=== PATIENT | female | born 1960 | race Caucasian/White ===

== ENCOUNTER 2018-05-30 01:41 | Emergency (ER) | payer SELFPAY ==
[~2018-05-30] VITALS: Ht 177.8 cm; Wt 54.4 kg
[~2018-05-30 01:41] MED LIST: ALBU1.25 NEB; BUDE10.2 IH; HYDR1TAB10 PO; SULF1TAB24 PO; TIOT18CA IH
[2018-05-30 01:45] VITALS: BP 128/88
[2018-05-30] MEDS ORDERED: methylPREDNISolone SOD SUCC PF 125 MG/2 ML VIAL. IM ONE (02:45)
[2018-05-30] MEDS ORDERED: KETOROLAC 60 MG/2 ML VIAL. IM ONE (02:45)
[2018-05-30] MEDS ORDERED: HYDR5SUS PO (02:48)
[2018-05-30] MEDS ORDERED: METH4TAB2 PO (02:48)
[2018-05-30] MEDS ORDERED: AZIT250T PO (02:48)
--- NOTE | 2018-05-30 02:48 | PHYS DOC ---
Past History Past Medical History: No Pertinent History, COPD, Other Past Surgical History: Other Alcohol Use: Occasionally Drug Use: Marijuana Adult General Chief Complaint Chief Complaint: COUGH [facility] HPI She is a 57-year-old female who presents with complaint of right sided upper flank/lower rib pain that started a couple of days ago. Patient states that the pain initially felt like it was pleurisy and then last night while she was at work she was doing a lot of lifting dog food bags and states that the pain has gotten worse. Patient states that it now hurts to breathe and coughing is unbearable. She rates pain at a 10 out of 10. She denies any shortness of breath and has had no fever. She does indicate that she has had no increase in coughing. She denies any lower extremity swelling or pain. She indicates that she has no history of blood clots. Review of Systems Review of Systems Constitutional: Denies fever or chills [] HENT: Denies nasal congestion or sore throat [] Respiratory: Complains of cough and pleuritic pain [] Cardiovascular: No additional information not addressed in HPI [] GI: Denies abdominal pain, nausea, vomiting or diarrhea [] Musculoskeletal: Complains of right-sided mid back pain [] Integument: Denies rash or skin lesions [] Allergies Allergies Allergies Coded Allergies Type Severity Reaction Last Updated Verified No Known Drug Allergies 03/24/14 No Physical Exam Physical Exam Constitutional: Well developed, well nourished, no acute distress, non-toxic appearance. [] Neck: Normal range of motion, no tenderness, supple, no stridor. [] Cardiovascular: Regular rate and rhythm. There is reproducible tenderness to palpation in the right posterior lower rib margin [] Lungs & Thorax: There are fine rhonchi in the lung bases, right greater than left to auscultation [] Skin: Warm, dry, no erythema, no rash. [] Extremities: No tenderness, no cyanosis, no clubbing, ROM intact, no edema. [] Current Patient Data Vital Signs Vital Signs Date Time Temp Pulse Resp B/P (MAP) Pulse Ox O2 Delivery O2 Flow Rate FiO2 05/30/18 01:45 98.3 74 98 Room Air EKG EKG [] Radiology/Procedures Radiology/Procedures [] Impressions: Right-sided rib series and chest x-ray demonstrates no acute abnormalities. Course & Med Decision Making Course & Med Decision Making Pertinent Labs and Imaging studies reviewed. (See chart for details) [] Dragon Disclaimer Dragon Disclaimer This electronic medical record was generated, in whole or in part, using a voice recognition dictation system. Departure Departure: Impression: Primary Impression: Acute bronchitis Additional Impressions: Pleurisy Costochondritis Disposition: HOME, SELF-CARE Condition: STABLE Referrals: [facility]ANCO[facility] (PCP) Patient Instructions: Acute Bronchitis, Costochondritis, Pleurisy Scripts Hydrocodone/Chlorphen Polis (HYDROCODONE-CHLORPHENIRAM SUSP) 5 Ml Mitzy.er.12h 5 ML PO PRN Q12HR PRN for COUGH, #120 ML 0 Refills Prov: MONTY ROMERO Jr. DO 05/30/18 Methylprednisolone (MEDROL) 4 Mg Tab.ds.pk 1 PKG PO UD for inflammation, #1 PKG Prov: MONTY ROMERO Jr. DO 05/30/18 Azithromycin (ZITHROMAX) 250 Mg Tablet 1 PKG PO UD for infection, #6 TAB Prov: MONTY ROMERO Jr. DO 05/30/18 Problem Qualifiers Primary Impression: Acute bronchitis Bronchitis organism: unspecified organism Qualified Codes: J20.9 - Acute bronchitis, unspecified MONTY ROMERO Jr. DO May 30, 2018 02:48
--- NOTE | 2018-05-30 03:50 | RAD ---
PA and lateral chest x-ray HISTORY: Cough and right-sided chest wall pain. FINDINGS: Heart size normal. Mediastinal silhouette is normal. Calcified granuloma lingula. Hyperinflation of the lungs and flattening of the diaphragms guessing air trapping. No pneumothorax, pulmonary opacities or pleural effusions. Mild thoracic scoliosis. IMPRESSION: No acute process. There is hyperinflation of the lungs with which could indicate air trapping from asthma or COPD. Right rib x-rays 3 views HISTORY: Right chest wall pain. FINDINGS: No evidence of a right rib fracture. Soft tissues unremarkable. IMPRESSION: No evidence of a right rib fracture. Electronically signed by: Raimundo Pope MD (05/30/2018 3:45 AM) [id number]
== END 2018-05-30 03:00 | disposition home or self-care (01) ==
LOC: ER 01:41
DX: M94.0 Chondrocostal junction syndrome [Tietze] (principal); J20.9 Acute bronchitis, unspecified; J44.9 Chronic obstructive pulmonary disease, unspecified
CPT/HCPCS: 71046; 71100; 96372; 99283; J1885; J2930